=== PATIENT | female | born 1990 | race Caucasian/White ===

== ENCOUNTER 2018-04-16 04:57 | Day surgery (SDC) | payer OTHER ==
[2018-04-15 11:26] VITALS: BMI 37.5
[2018-04-16] MEDS ORDERED: oxyCODONE HCL 5 MG TABLET PO PRN ×2 (15:46→16:51)
[2018-04-16] MEDS ORDERED: ONDANSETRON 4 MG/2 ML VIAL IVPUSH PRN ×2 (15:46→16:51)
[2018-04-16] MEDS ORDERED: LACTATED RINGERS SOLUTION 1,000 ML IV SCH (16:00)
[2018-04-16] MEDS ORDERED: MIDAZOLAM HCL 2 MG/2 ML SINGLE DOSE VIAL ONE (16:05)
--- NOTE | 2018-04-16 16:08 | HP ---
History & Physical Update - Physical Physical: No Change - Assessment Assessment: No Change - Plan Plan: No Change
[2018-04-16] MEDS ORDERED: IBUPROFEN 600 MG TABLET (FP) PO PRN (16:51)
[2018-04-16] MEDS ORDERED: IBUPROFEN 800 MG/8 ML IJ IVPB PRN (16:51)
[2018-04-16] MEDS ORDERED: ELECTROLYTE-148 SOLN 1,000 ML IV SCH (17:00)
[2018-04-16 18:23] VITALS: TEMP 98
[2018-04-16] MEDS ORDERED: oxyCODONE HCL 5 MG TABLET ONE (18:55)
[2018-04-16 19:46] VITALS: BP 133/74; PULSE 69
--- NOTE | 2018-04-17 09:57 | OP ---
DATE OF OPERATION: 04/16/2018 PREOPERATIVE DIAGNOSIS: Missed . POSTOPERATIVE DIAGNOSIS: Missed . PROCEDURE: Suction curettage, dilatation and curettage. SURGEON: Manohar Hdez MD ANESTHESIA: General. ESTIMATED BLOOD LOSS: 200 mL. OPERATIVE PROCEDURE: The patient was taken to the operating room and adequate general anesthesia induced. In the lithotomy position, evaluation under anesthesia revealed external genitalia to be normal. Vagina was normal. Cervix clean, no gross lesion. Cervix was closed. Uterus was approximately 12-14 weeks' size. Adnexa, no masses were palpable. Then, with the weighted speculum in the vagina, anterior lip of cervix was grasped with a single-toothed tenaculum. Cervix was gradually dilated with Hegar dilator, and then suction curette was inserted, and the contents were suctioned. Then with a smooth curette, the uterine cavity was gently curetted, and no more tissue was obtained. The patient tolerated the procedure well, left the OR in good condition. MANOHAR HDEZ M.D. [id number]
--- NOTE | 2018-04-20 16:07 | PATH ---
Surgical Pathology Report Patient Name: RUSSELL FERRO [facility]. Rec. #: [id number] /Age/Gender: 1990 (Age: 27) / F Account: [id number] Location: [facility] Taken: 04/16/2018 Received: 04/17/2018 Reported: 04/20/2018 Physicians: Manohar Hdez M.D. Specimen(s) Received PRODUCTS OF CONCEPTION Clinical History Missed Final Diagnosis PRODUCTS OF CONCEPTION, SUCTION D&C: CHORIONIC VILLI PRESENT, CONSISTENT PRODUCTS OF CONCEPTION. Electronically Signed Ignacio Marr M.D. Gross Description Received in formalin labeled "products of conception" is a 15.0 x 11.5 x 2.8 cm aggregate of red-brown soft tissue fragments. Villous tissue is identified. No definite somatic tissue is identified. A housing management representative portion is submitted in one cassette. /04/17/2018 saudi04/17/2018
== END 2018-04-16 19:20 | disposition home or self-care (01) ==
LOC: JASU-SURG 04:57
PROVIDERS: ATTEND Obstetrics & Gynecology
PROC: 10D17ZZ Extraction of Products of Conception, Retained, Via Natural or Artificial Opening (ICD-10-PCS; principal; 2018-04-16 15:30)
DX: O02.1 Missed abortion (principal)
CPT/HCPCS: 88305-TC; 94760